=== PATIENT | male | born 1980 | race Hispanic/Latino ===

== ENCOUNTER 2018-01-03 21:30 | Emergency (ER) | payer OTHER ==
[2018-01-03 21:57] VITALS: RESP 16; O2SAT 100
[2018-01-03] MEDS ORDERED: Sodium Chloride 0.9% 1,000 ML IV STA (23:07)
--- NOTE | 2018-01-03 23:10 | ED PDOC ---
HPI: General Adult Time Seen by Provider: 01/03/18 22:48 Chief Complaint (Nursing): Headache Chief Complaint (Provider): fever History Per: Patient History/Exam Limitations: no limitations Onset/Duration Of Symptoms: Days (2) Current Symptoms Are (Timing): Still Present Additional Complaint(s): 37 y/o male history of Crohn's (on Humira injections) presents for evaluation of fever x 2 days. Associated headache, diarrhea (once yesterday, once today), and two episodes of vomiting yesterday. Patient was unaware he had a fever until this morning, took Tylenol at that time. Patient was evaluated by his primary doctor and started on Doxycyline but told it was likely a virus but could not get an IV in patient so sent patient to ED. Denies dizziness, vision changes, neck/back pain, nasal congestion/discharge, cough, shortness of breath , abdominal pain, recent travel, sick contacts. Past Medical History Reviewed: Historical Data, Nursing Documentation, Vital Signs Vital Signs: Last Vital Signs Temp 98.3 F 01/04/18 03:20 Pulse 78 01/04/18 03:20 Resp 16 01/04/18 03:20 BP 122/74 01/04/18 03:20 Pulse Ox 100 01/04/18 03:20 - Medical History PMH: Crohn's Disease - Surgical History Other surgeries: right ear sx - Family History Family History: States: No Known Family Hx - Home Medications Home Medications: Ambulatory Orders Medication Instructions Recorded Ibuprofen [Motrin Tab] 1 tab PO Q6 PRN #15 tab 01/04/18 Levofloxacin [Levaquin] 750 mg PO DAILY #4 tablet 01/04/18 - Allergies Allergies/Adverse Reactions: Allergies Allergy/AdvReac Type Severity Reaction Status Date / Time No Known Allergies Allergy Verified 01/03/18 21:53 Review of Systems ROS Statement: Except As Marked, All Systems Reviewed And Found Negative Constitutional: Positive for: Fever Physical Exam - Reviewed Nursing Documentation Reviewed: Yes Vital Signs Reviewed: Yes - Physical Exam Appears: Positive for: Well, Non-toxic, No Acute Distress Head Exam: Positive for: ATRAUMATIC, NORMAL INSPECTION, NORMOCEPHALIC Skin: Positive for: Normal Color Eye Exam: Positive for: Normal appearance ENT: Positive for: Normal ENT Inspection Neck: Positive for: Normal, Painless ROM Cardiovascular/Chest: Positive for: Regular Rate, Rhythm Respiratory: Positive for: Normal Breath Sounds Gastrointestinal/Abdominal: Positive for: Normal Exam Back: Positive for: Normal Inspection Extremity: Positive for: Normal ROM Neurologic/Psych: Positive for: Alert, Oriented (x3) - Laboratory Results Result Diagrams: 01/03/18 23:21 01/03/18 23:21 - ECG O2 Sat by Pulse Oximetry: 100 - Progress ED Course And Treament: labs, flu, strep, tylenol PO, IV fluids, chest xray EXAM: XR Chest, 2 Views EXAM DATE/TIME: 01/03/2018 11:07 PM CLINICAL HISTORY: 37 years old, male; Signs and symptoms; Fever TECHNIQUE: XR of the chest, 2 views. COMPARISON: No relevant prior studies available. FINDINGS: Lungs: There is a RIGHT posterior lower lobe alveolar pneumonia. This finding overlies the lower thoracic spine on the lateral view. Pleural space: Unremarkable. No pleural effusion. No pneumothorax. Heart/Mediastinum: Unremarkable. No cardiomegaly. Bones/joints: Unremarkable for patient's age. IMPRESSION: RIGHT lower lobe alveolar pneumonia IV levaquin dose given in ED On re-eval, patient states he is feeling better. Patient educated on findings, discharged with rx Levaquin (advised to use in place of previous antibiotics), Ibuprofen Advised fluids. Rest. Follow up PMD 2-3 days Return precautions given Patient demonstrates full understanding of discharge instructions. Patient requires no further intervention in ED and is stable for discharge at this time Disposition - Clinical Impression Clinical Impression: Pneumonia - Patient ED Disposition Is Patient to be Admitted: No Counseled Patient/Family Regarding: Studies Performed, Diagnosis, Need For Followup, Rx Given - Disposition Disposition: Routine/Home Disposition Time: 03:03 Condition: IMPROVED Prescriptions: Ibuprofen [Motrin Tab] 1 tab PO Q6 PRN #15 tab PRN Reason: Fever >100.4 F Levofloxacin [Levaquin] 750 mg PO DAILY #4 tablet Instructions: Pneumonia in Adults Forms: [employer] ([place])
[2018-01-03 23:27] LABS: VENOUS BLOOD GAS BASE EXCESS 7.1 mmol/L (0.0-2.0); VENOUS BLOOD GAS PCO2 45 mmHg (40-60); VENOUS BLOOD GAS PO2 36 mm/Hg (30-55); VENOUS BLOOD PH 7.46 (7.32-7.43)
[2018-01-03 23:31] LABS: BASO % 0.1 % (0.0-2.0); HEMOGLOBIN 13.9 g/dL (12.0-18.0); LYMPH # 0.8 K/uL (1.0-4.3); LYMPH % 7.4 % (20.0-40.0); MEAN CELL VOLUME 86.6 fl (80.0-94.0); MEAN CORPUSCULAR HEMOGLOBIN 29.5 pg (27.0-31.0); MEAN PLATELET VOLUME 9.5 fl (7.2-11.7); MONO % 9.3 % (0.0-10.0); NEUT # 8.8 K/uL (1.8-7.0); NEUT % 83.2 % (50.0-75.0); NRBC % 0.1 % (0.0-0.0); PLATELET COUNT 138 K/uL (130-400); RBC 4.71 Mil/uL (4.40-5.90); RED CELL DISTRIBUTION WIDTH 13.2 % (11.5-14.5); WHITE BLOOD COUNT 10.6 K/uL (4.8-10.8)
[2018-01-03 23:46] LABS: ALB/GLOB RATIO 1.2 (1.0-2.1); ALBUMIN 4.5 g/dL (3.5-5.0); ALT/SGPT 51 U/L (21-72); AST/SGOT 79 U/L (17-59); BLOOD UREA NITROGEN 16 mg/dl (9-20); CALCIUM 9.4 mg/dL (8.4-10.2); GFR NON-AFRICAN AMERICAN > 60; LIPASE 80 U/L (23-300)
[2018-01-04] MEDS ORDERED: Sodium Chloride 0.9% 1,000 ML IV STA (00:19)
[2018-01-04] MEDS ORDERED: levoFLOXacin 750 mg in D5W 150 ML BAG IVPB STA (00:27)
[2018-01-04] MEDS ORDERED: levoFLOXacin 750 mg in D5W 750 MG/150 ML BAG IVPB ONE (00:51)
[2018-01-04 01:54] LABS: ANISOCYTOSIS SLIGHT; BANDS 4 % (0-2); LYMPHOCYTE 7 % (20-50); MONOCYTE 5 % (0-10); NEUTROPHIL 84 % (42-75); PLATELET ESTIMATE NORMAL (NORMAL); TOTAL CELLS COUNTED 100
[2018-01-04 03:21] VITALS: BP 122/74; PULSE 78; TEMP 98.3
--- NOTE | 2018-01-04 08:34 | RAD ---
Date of service: 01/03/2018 HISTORY: fever COMPARISON: No prior. TECHNIQUE: Chest PA and lateral FINDINGS: LUNGS: The vague right lower lobe infiltrate is suggested PLEURA: No significant pleural effusion identified. No pneumothorax apparent. CARDIOVASCULAR: Normal. OSSEOUS STRUCTURES: No significant abnormalities. VISUALIZED UPPER ABDOMEN: Normal. OTHER FINDINGS: None. IMPRESSION: Vague right lower lobe infiltrate suggested
== END 2018-01-04 03:05 | disposition home or self-care (01) ==
LOC: H.ER 21:30
DX: J18.9 Pneumonia, unspecified organism (principal); K50.90 Crohn's disease, unspecified, without complications
CPT/HCPCS: 71046; 80053; 82803; 83690; 85025; 87040; 87070; 87430; 87804; 99285; J7030